=== PATIENT | male | born 1955 | race Caucasian/White ===

== ENCOUNTER 2017-10-01 11:22 | Inpatient (IN) | payer MEDICAID ==
[~2017-10-01] VITALS: Ht 180.3 cm; Wt 78.0 kg
[2017-10-01] MEDS ORDERED: SODIUM CHLORIDE 0.9% 1,000 ML IV ONE (11:45)
[2017-10-01] MEDS ORDERED: SODIUM CHLORIDE FLUSH 10ML SYR IVF ONE (12:00)
[2017-10-01] MEDS ORDERED: LORazepam 2 MG/ML, 1ML ONE ×2 (12:20→14:27)
[2017-10-01] MEDS ORDERED: FAMOTIDINE 20 MG/2 ML ONE (12:20)
[2017-10-01 12:24] LABS: BASOPHILS # (AUTO) 0.04 x10^3/uL (0-0.1); BASOPHILS % (AUTO) 1 % (0-1); EOSINOPHILS # (AUTO) 0.05 x10^3/uL (0-0.4); EOSINOPHILS % (AUTO) 2 % (1-7); LYMPHOCYTES # (AUTO) 0.94 x10^3/uL (1-3.4); LYMPHOCYTES % (AUTO) 31 % (22-44); MD NO; MEAN CORPUSCULAR HEMOGLOBIN 35.9 pg (27.5-34.5); MEAN CORPUSCULAR VOLUME 105.6 fL (81-97); MEAN PLATELET VOLUME 9.4 fL (7.4-10.4); MONOCYTES # (AUTO) 0.35 x10^3/uL (0.2-0.8); MONOCYTES % (AUTO) 11 % (2-9); NEUTROPHILS # (AUTO) 1.71 x10^3/uL (1.8-6.8); NEUTROPHILS % (AUTO) 55 % (42-75); PLATELET COUNT 112 x10^3/uL (130-400); RED BLOOD COUNT 3.91 x10^6/uL (4.38-5.82); RED CELL DISTRIBUTION WIDTH 15.8 % (9.4-14.8)
[2017-10-01] MEDS ORDERED: MAALOX/HYOSCYAMINE/LIDOCAINE 45 ML BTL PO ONE (12:30)
[2017-10-01] MEDS ORDERED: FAMOTIDINE 20 MG/2 ML IVPush ONE (12:30)
[2017-10-01] MEDS ORDERED: LORazepam 2 MG/ML, 1ML IVPush ONE (12:30)
[2017-10-01 12:55] LABS: INTERNATIONAL NORMALIZED RATIO 1.08 (0.93-1.1); PROTHROMBIN TIME 11.1 Seconds (9.6-11.5)
[2017-10-01] MEDS ORDERED: MAALOX/HYOSCYAMINE/LIDOCAINE 45 ML BTL ONE (12:55)
[2017-10-01 12:59] LABS: ALANINE AMINOTRANSFERASE 96 U/L (12-78); ALBUMIN 3.2 g/dL (3.4-5.0); ANION GAP 12 mmol/L (5-15); CALCIUM 8.4 mg/dL (8.5-10.1); CHLORIDE 109 mmol/L (98-107); CREATININE 0.55 mg/dL (0.7-1.3)
[2017-10-01 13:04] LABS: ALKALINE PHOSPHATASE 118 U/L (45-117); BILIRUBIN,TOTAL 1.4 mg/dL (0.2-1.0); TOTAL PROTEIN 7.3 g/dL (6.4-8.2); TROPONIN I < 0.015 ng/mL (0.000-0.045)
[2017-10-01] MEDS ORDERED: OMNIPAQUE 350 MG/ML, 100ML BOTTLE ONE (13:43)
[2017-10-01] MEDS ORDERED: LABETALOL 5MG/ML, 20ML IVPush PRN (15:00)
[2017-10-01] MEDS ORDERED: morphine SULFATE 10 MG/ML, 1ML IVPush PRN (15:00)
[2017-10-01] MEDS ORDERED: DOCUSATE 100 MG CAPSULE PO PRN (15:00)
[2017-10-01] MEDS ORDERED: LORazepam 1MG TABLET PO PRN ×3 (15:00)
[2017-10-01] MEDS ORDERED: BISACODYL 10 MG SUPP PR PRN (15:00)
[2017-10-01] MEDS ORDERED: ENALAPRILAT 1.25 MG/ML, 2ML IVPush PRN (15:00)
[2017-10-01] MEDS ORDERED: HYDROcodone/APAP 5/325 TABLET PO PRN (15:00)
[2017-10-01] MEDS ORDERED: POLYETHYLENE GLYCOL 17 GM PACKET PO PRN (15:00)
[2017-10-01] MEDS ORDERED: LORazepam 2 MG/ML, 1ML IV PRN ×3 (15:00)
[2017-10-01] MEDS ORDERED: LORazepam 0.5MG TABLET PO PRN (15:00)
[2017-10-01] MEDS ORDERED: ACETAMINOPHEN 325 MG TABLET PO PRN (15:00)
[2017-10-01] MEDS ORDERED: METOCLOPRAMIDE 5 MG/ML, 2ML IVPush PRN (15:00)
[2017-10-01] MEDS ORDERED: ONDANSETRON 2MG/ML, 2ML IVPush PRN (15:00)
[2017-10-01 15:31] VITALS: BP 147/89
[2017-10-01] MEDS: NICOTINE 7 MG/24 HR PATCH.TD24 TD SCH (16:07)
[2017-10-01] MEDS: LACTATED RINGERS 1,000 ML IV SCH (16:07)
[2017-10-01] MEDS: THIAMINE 100 MG, MVI ADULT 10 ML, FOLIC ACID 1 MG in D5%-0.9% NACL 1,000 ML IV SCH (16:12)
[2017-10-01 18:41] VITALS: BP 133/89
[2017-10-01 18:41] LABS: AMPHETAMINE SCREEN, URINE Negative (Negative); BARBITURATE SCREEN, URINE Negative (Negative); BENZODIAZEPINE SCREEN, URINE Negative (Negative); CANNABINOID SCREEN, URINE Negative (Negative); COCAINE SCREEN, URINE Negative (Negative); METHADONE SCREEN, URINE Negative (Negative); OPIATE SCREEN, URINE Negative (Negative)
[2017-10-01 20:50] VITALS: BP 148/95
[2017-10-02] MEDS: LORazepam 2 MG/ML, 1ML IV PRN ×3 (00:09→05:50)
[2017-10-02] MEDS: LACTATED RINGERS 1,000 ML IV SCH ×4 (00:09→23:00)
[2017-10-02 02:40] VITALS: BP 146/88
[2017-10-02 04:44] LABS: MEAN CORPUSCULAR HEMOGLOBIN 36.1 pg (27.5-34.5); MEAN CORPUSCULAR HGB CONC 33.7 g/dL (33.2-36.2); RED BLOOD COUNT 3.91 x10^6/uL (4.38-5.82); RED CELL DISTRIBUTION WIDTH 15.9 % (9.4-14.8)
[2017-10-02 04:50] LABS: ALBUMIN 3.1 g/dL (3.4-5.0); ANION GAP 9 mmol/L (5-15); CALCIUM 8.3 mg/dL (8.5-10.1); CHLORIDE 106 mmol/L (98-107)
[2017-10-02 04:55] LABS: ALANINE AMINOTRANSFERASE 85 U/L (12-78); ALKALINE PHOSPHATASE 112 U/L (45-117); BILIRUBIN,TOTAL 3.1 mg/dL (0.2-1.0); CREATININE 0.61 mg/dL (0.7-1.3)
[2017-10-02 05:16] LABS: BASOPHILS # (AUTO) 0.02 x10^3/uL (0-0.1); BASOPHILS % (AUTO) 1 % (0-1); EOSINOPHILS # (AUTO) 0.03 x10^3/uL (0-0.4); EOSINOPHILS % (AUTO) 1 % (1-7); LYMPHOCYTES # (AUTO) 0.52 x10^3/uL (1-3.4); LYMPHOCYTES % (AUTO) 20 % (22-44); MD SCAN; MEAN PLATELET VOLUME 9.2 fL (7.4-10.4); MONOCYTES # (AUTO) 0.28 x10^3/uL (0.2-0.8); MONOCYTES % (AUTO) 10 % (2-9); NEUTROPHILS # (AUTO) 1.82 x10^3/uL (1.8-6.8); NEUTROPHILS % (AUTO) 68 % (42-75); PLATELET COUNT 93 x10^3/uL (130-400)
[2017-10-02 07:32] VITALS: BP 153/98
[2017-10-02 12:45] VITALS: BP 125/73
[2017-10-02] MEDS: THIAMINE 100 MG, MVI ADULT 10 ML, FOLIC ACID 1 MG in D5%-0.9% NACL 1,000 ML IV SCH (16:48)
[2017-10-02] MEDS: NICOTINE 7 MG/24 HR PATCH.TD24 TD SCH (16:48)
[2017-10-02 20:30] VITALS: BP 148/87
[2017-10-03 02:33] VITALS: BP 125/80
[2017-10-03 05:10] LABS: ALBUMIN 3.1 g/dL (3.4-5.0); ANION GAP 6 mmol/L (5-15); CALCIUM 8.8 mg/dL (8.5-10.1); CHLORIDE 105 mmol/L (98-107)
[2017-10-03 05:13] LABS: ALANINE AMINOTRANSFERASE 84 U/L (12-78); ALKALINE PHOSPHATASE 110 U/L (45-117); BILIRUBIN,TOTAL 3.3 mg/dL (0.2-1.0); CREATININE 0.53 mg/dL (0.7-1.3); TOTAL PROTEIN 6.8 g/dL (6.4-8.2)
[2017-10-03 05:21] LABS: MEAN CORPUSCULAR HGB CONC 33.8 g/dL (33.2-36.2); MEAN CORPUSCULAR VOLUME 106.5 fL (81-97); RED BLOOD COUNT 3.98 x10^6/uL (4.38-5.82); RED CELL DISTRIBUTION WIDTH 15.5 % (9.4-14.8)
[2017-10-03 05:39] LABS: BASOPHILS # (AUTO) 0.02 x10^3/uL (0-0.1); BASOPHILS % (AUTO) 1 % (0-1); EOSINOPHILS # (AUTO) 0.06 x10^3/uL (0-0.4); EOSINOPHILS % (AUTO) 2 % (1-7); LYMPHOCYTES % (AUTO) 23 % (22-44); MD SCAN; MEAN PLATELET VOLUME 9.6 fL (7.4-10.4); MONOCYTES # (AUTO) 0.27 x10^3/uL (0.2-0.8); MONOCYTES % (AUTO) 10 % (2-9); NEUTROPHILS # (AUTO) 1.66 x10^3/uL (1.8-6.8); NEUTROPHILS % (AUTO) 64 % (42-75); PLATELET COUNT 83 x10^3/uL (130-400)
[2017-10-03 07:22] VITALS: BP 142/81
[2017-10-03] MEDS: CYANOCOBALAMIN 1,000 MCG TABLET PO SCH (10:23)
[2017-10-03] MEDS: FOLIC ACID 1 MG TABLET PO SCH (10:23)
[2017-10-03] MEDS: MULTIVITAMIN 1 TABLET PO SCH (10:23)
[2017-10-03] MEDS: LACTATED RINGERS 1,000 ML IV SCH ×2 (10:24→21:40)
[2017-10-03] MEDS ORDERED: OMNIPAQUE 350 MG/ML, 75ML BOTTLE ONE (10:32)
[2017-10-03 13:01] VITALS: BP 128/84
[2017-10-03] MEDS: NICOTINE 7 MG/24 HR PATCH.TD24 TD SCH (15:10)
[2017-10-03 19:37] VITALS: BP 119/77
[2017-10-04 02:31] VITALS: BP 119/80
[2017-10-04] MEDS: LACTATED RINGERS 1,000 ML IV SCH ×3 (03:46→21:28)
[2017-10-04 08:00] VITALS: BP 138/35
[2017-10-04] MEDS: CYANOCOBALAMIN 1,000 MCG TABLET PO SCH (08:22)
[2017-10-04] MEDS: FOLIC ACID 1 MG TABLET PO SCH (08:22)
[2017-10-04] MEDS: MULTIVITAMIN 1 TABLET PO SCH (08:22)
[2017-10-04] MEDS ORDERED: GADOBUTROL 10 MMOL/10 ML VIAL ONE (11:47)
[2017-10-04 13:10] VITALS: BP 113/80
[2017-10-04] MEDS: NICOTINE 7 MG/24 HR PATCH.TD24 TD SCH (15:29)
[2017-10-04 19:57] VITALS: BP 133/87
[2017-10-05 03:42] VITALS: BP 116/69
[2017-10-05] MEDS: LACTATED RINGERS 1,000 ML IV SCH ×3 (05:00→20:00)
[2017-10-05 07:50] VITALS: BP 154/98
[2017-10-05] MEDS: FOLIC ACID 1 MG TABLET PO SCH (10:13)
[2017-10-05] MEDS: MULTIVITAMIN 1 TABLET PO SCH (10:13)
[2017-10-05] MEDS: CYANOCOBALAMIN 1,000 MCG TABLET PO SCH (10:13)
[2017-10-05 13:56] VITALS: BP 133/85
[2017-10-05] MEDS: NICOTINE 7 MG/24 HR PATCH.TD24 TD SCH (15:24)
[2017-10-05 19:04] VITALS: BP 112/76
[2017-10-06 03:00] VITALS: BP 139/72
[2017-10-06] MEDS: LACTATED RINGERS 1,000 ML IV SCH ×2 (04:00→12:14)
[2017-10-06 04:43] LABS: ALANINE AMINOTRANSFERASE 87 U/L (12-78); ALBUMIN 3.1 g/dL (3.4-5.0); ANION GAP 5 mmol/L (5-15); CALCIUM 8.9 mg/dL (8.5-10.1); CHLORIDE 108 mmol/L (98-107); CREATININE 0.64 mg/dL (0.7-1.3)
[2017-10-06 04:45] LABS: ALKALINE PHOSPHATASE 122 U/L (45-117); BILIRUBIN,TOTAL 1.9 mg/dL (0.2-1.0)
[2017-10-06 07:41] VITALS: BP 130/85
[2017-10-06] MEDS: MULTIVITAMIN 1 TABLET PO SCH (08:09)
[2017-10-06] MEDS: CYANOCOBALAMIN 1,000 MCG TABLET PO SCH (08:09)
[2017-10-06] MEDS: FOLIC ACID 1 MG TABLET PO SCH (08:09)
[2017-10-06] MEDS ORDERED: CLON0.1T12 PO (11:07)
[2017-10-06] MEDS ORDERED: CYAN10005 PO (11:07)
[2017-10-06] MEDS ORDERED: FOLI-17 PO (11:07)
[2017-10-06] MEDS ORDERED: MULT1TAB60 PO (11:07)
[2017-10-06 12:12] VITALS: BP 109/72
== END 2017-10-06 13:12 | disposition home or self-care (01) | DRG 436 ==
LOC: ED 12:23 → EDIP 14:02 → 3NW 15:30
PROVIDERS: ADMIT Hospitalist; ATTEND Hospitalist
DX: C22.0 Liver cell carcinoma (principal); E44.0 Moderate protein-calorie malnutrition; I10 Essential (primary) hypertension; D72.819 Decreased white blood cell count, unspecified; D69.59 Other secondary thrombocytopenia; D75.89 Other specified diseases of blood and blood-forming organs; R74.0 Nonspecific elevation of levels of transaminase and lactic acid dehydrogenase [LDH]; J44.9 Chronic obstructive pulmonary disease, unspecified; B18.2 Chronic viral hepatitis C; F10.229 Alcohol dependence with intoxication, unspecified; F19.90 Other psychoactive substance use, unspecified, uncomplicated; K21.9 Gastro-esophageal reflux disease without esophagitis; K70.10 Alcoholic hepatitis without ascites; K76.0 Fatty (change of) liver, not elsewhere classified; Y90.0 Blood alcohol level of less than 20 mg/100 ml; Z68.24 Body mass index [BMI] 24.0-24.9, adult; Z72.0 Tobacco use; Z80.8 Family history of malignant neoplasm of other organs or systems
CPT/HCPCS: 36415; 71045; 71260; 74177; 74183; 78306; 80053; 80307; 82105; 82378; 82607; 83690; 83735; 84100; 84484; 85025; 85610; 86704; 86706; 86708; 86803; 87340; 87806; 93005; 96361; 96374; 96375; A9585; J2405; J3411; J7042; Q9967; A9503; C9898; G0475; J2060; J7030; J7120; S0028